=== PATIENT | male | born 1935 | race Caucasian/White ===

== ENCOUNTER 2017-05-03 11:29 | Emergency (ER) | payer MEDICARE, OTHER ==
[2017-05-03] MEDS ORDERED: Sodium Chloride 0.9% 10 ML Syringe FLUSH PRN (12:03)
[2017-05-03] MEDS ORDERED: Metoprolol Tartrate 5 MG/5 ML SDV IVPUSH ONE (12:06)
[2017-05-03] MEDS ORDERED: Sodium Chloride 0.9% 1,000 ML IV SCH ×2 (12:15→13:15)
--- NOTE | 2017-05-03 13:06 | EDM.PDOC ---
ED HPI GENERAL MEDICAL PROBLEM - General Chief Complaint: Abdominal Pain Stated Complaint: ABDOMINAL PAIN OFF AND ON X 5 DAYS+ Time Seen by Provider: 05/03/17 11:41 Source of Information: Reports: Patient, RN Notes Reviewed History Limitations: Reports: No Limitations - History of Present Illness INITIAL COMMENTS - FREE TEXT/NARRATIVE: 82-year-old male comes into the ER complaining of abdominal pain which started last . Patient went to the [facility] last Saturday where per patient they did "some sort of scan" and decided to start him on Cipro 10 days for possible infection. He was also told to stay hydrated as his symptoms may be from dehydration. Since the clinic visit he has had no relief in symptoms with the pain localizing to the right lower area. Patient admits to having nausea, chills and states that it hurts to walk and has to hunch over at times yesterday and today. Patient denies any fever, diarrhea, constipation, decreased appetite, blood in the stool or urine. Last bowel movement was last night and was normal per patient. Patient states has been taking Tylenol and Tramadol for pain when necessary, with the last time taking Tramadol at 4:30 AM this morning with no relief. Patient's states that he has had similar episodes in the past up to 5 times that this is the first time it has not gone away. Patient denies any past history of GI issues and still has both the appendix and gallbladder. He is not up-to-date with his colonoscopy, as he admits he has never had one. Pain worsening the last 2-3 days and becoming more persistent. Appetite has been diminished. Onset: Other (Last ) Duration: Constant Location: Reports: Abdomen (Right lower area) Quality: Reports: Sharp Severity: Moderate Improves with: Reports: None Worsens with: Reports: None (Constant) Associated Symptoms: Reports: Fever/Chills, Loss of Appetite (Last ate last night), Nausea/Vomiting (Nausea only). Denies: Chest Pain, Cough, Diaphoresis, Headaches Right Lower Abdominal Pain Score (Numeric/FACES): 6 - Related Data Allergies Allergy/AdvReac Type Severity Reaction Status Date / Time No Known Allergies Allergy Verified 05/03/17 11:36 Home Meds: Home Meds Albuterol [Proair HFA] 2 puff INH Q6H PRN 05/03/17 [History] Ciprofloxacin [IJD: Ciprofloxacin HCl] 500 mg PO BID 05/03/17 [History] Clopidogrel [Plavix] 75 mg PO DAILY 05/03/17 [History] Fluticasone/Vilanterol [Breo Ellipta 200-25 MCG Inhalation Kit] 1 puff INH DAILY 05/03/17 [History] Losartan [Cozaar] 50 mg PO DAILY 05/03/17 [History] Metoprolol Tartrate 25 mg PO DAILY 05/03/17 [History] Simvastatin 40 mg PO DAILY 05/03/17 [History] Tiotropium [place] [Spiriva Respimat] 2 puff INH DAILY 05/03/17 [History] traMADol [Ultram] 50 mg PO Q6H PRN 05/03/17 [History] traMADol [Ultram] 50 mg PO Q6H PRN #14 tab 05/03/17 [Rx] ED ROS GENERAL - Review of Systems Review Of Systems: See Below Constitutional: Reports: Chills, Decreased Appetite HEENT: Reports: No Symptoms Respiratory: Reports: No Symptoms, Shortness of Breath (Possible mild, chronic) Cardiovascular: Denies: Chest Pain, Palpitations Endocrine: Reports: No Symptoms GI/Abdominal: Reports: Abdominal Pain (Right lower quadrant), Decreased Appetite. Denies: Constipation, Diarrhea, Difficulty Swallowing, Hematemesis, Hematochezia : Reports: No Symptoms, Hematuria (Gone now) Musculoskeletal: Reports: No Symptoms Skin: Reports: No Symptoms. Denies: Diaphoresis Neurological: Reports: Difficulty Walking (States pain in right lower quadrant when walking), Gait Disturbance (Hunches over due to pain in right lower quadrant). Denies: Headache Psychiatric: Reports: No Symptoms Immunologic: Reports: No Symptoms ED EXAM, GI/ABD - Physical Exam Exam: See Below Exam Limited By: No Limitations General Appearance: Alert, WD/WN, Mild Distress (At time of exam, note, pain much worse this morning prior to coming in) Eyes: Bilateral: Normal Appearance Ears: Normal External Exam Nose: Normal Inspection Throat/Mouth: Normal Inspection, Other (Oral mucosa dry) Head: Atraumatic Neck: Normal Inspection Respiratory/Chest: No Respiratory Distress, Lungs Clear, Normal Breath Sounds Cardiovascular: Tachycardia, Irregularly Irregular, Other (Currently in atrial fibrillation) GI/Abdominal Exam: Normal Bowel Sounds, Guarding, Tender (Right lower quadrant) . No: Rigid, Rebound, Hernia, Mass, Hepatomegaly, Splenomegaly Back Exam: No: CVA Tenderness (L), CVA Tenderness (R) Extremities: Normal Inspection. No: Pedal Edema, Leg Pain Neurological: Alert, Oriented Psychiatric: Normal Affect, Normal Mood Skin Exam: Warm, Dry, Intact, Normal Color EKG INTERPRETATION EKG Date: 05/03/17 Rhythm: A-Fib [place]: Normal P-Wave: Absent QRS: Normal ST-T: Other (Very mild T-wave inversion inferior leads) Course - Vital Signs Text/Narrative:: Ultrasound of gallbladder does not show apparent gallbladder disease or explanation for right-sided abdominal pain. CT of abdomen had been done earlier did show some fluid around the gallbladder. Appendix was normal, her apparent acute pathology noted, see radiology report for details. White count very mildly elevated. She has been resting quite comfortably while here in the ED now for many hours. He does feel up to going home at this time. He has never had a colonoscopy. His states that he is now had "5 episodes of rather severe right sided abdominal discomfort in the past 6-8 months. I'm strongly suggesting that he get a colonoscopy as soon as possible. Discharge instructions as documented. Last Recorded V/S: Last Vital Signs Temp 98.5 F 05/03/17 11:36 Pulse 109 H 05/03/17 13:51 Resp 18 05/03/17 11:36 BP 150/98 H 05/03/17 13:51 Pulse Ox 96 05/03/17 11:36 - Orders/Labs/Meds Orders: Active Orders 24 hr Category Date Time Status EKG 12 Lead [EKG Documentation Completion] [RC] STAT Care 05/03/17 12:03 Active Peripheral IV Care [RC] . DIRECTED Care 05/03/17 12:03 Active Sodium Chloride 0.9% [Normal Saline] 1,000 ml Med 05/03/17 13:15 Active IV ASDIRECTED Sodium Chloride 0.9% [Normal Saline] 1,000 ml Med 05/03/17 12:15 Active IV ONETIME Sodium Chloride 0.9% [Saline Flush] Med 05/03/17 12:03 Active 10 ml FLUSH ASDIRECTED PRN Peripheral IV Insertion Adult [OM.PC] Stat Oth 05/03/17 12:03 Ordered Medication Orders Sodium Chloride (Normal Saline) 1,000 mls @ 999 mls/hr IV ONETIME ASHA Last Admin: 05/03/17 12:41 Dose: 999 mls/hr Sodium Chloride (Normal Saline) 1,000 mls @ 75 mls/hr IV ASDIRECTED ASHA Last Admin: 05/03/17 13:57 Dose: 75 mls/hr Sodium Chloride (Saline Flush) 10 ml FLUSH ASDIRECTED PRN PRN Reason: Keep Vein Open Last Admin: 05/03/17 12:42 Dose: 10 ml Labs: Laboratory Tests 05/03/17 05/03/17 05/03/17 Range/Units 12:05 12:05 12:05 WBC 14.09 H (4.23-9.07) K/mm3 RBC 4.40 L (4.63-6.08) M/mm3 Hgb 12.3 L (13.7-17.5) gm/L Hct 39.7 L (40.1-51.0) % MCV 90.2 (79.0-92.2) fl MCH 28.0 (25.7-32.2) pg MCHC 31.0 L (32.2-35.5) g/dl RDW Std Deviation 48.2 H (35.1-43.9) fL Plt Count 250 (163-337) K/mm3 MPV 9.8 (9.4-12.3) fl Neutrophils % (Manual) 76 H (40-60) % Band Neutrophils % 0 (0-10) % Lymphocytes % (Manual) 16 L (20-40) % Atypical Lymphs % 0 % Monocytes % (Manual) 7 (2-10) % Eosinophils % (Manual) 1 (0.8-7.0) % Basophils % (Manual) 0 L (0.2-1.2) Platelet Estimate Adequate RBC Morph Comment Normal Sodium 135 L (136-145) mEq/L Potassium 4.6 (3.5-5.1) mEq/L Chloride 102 (98-107) mEq/L Carbon Dioxide 22 (21-32) mEq/L Anion Gap 15.6 H (5-15) BUN 25 H (7-18) mg/dL Creatinine 1.9 H (0.7-1.3) mg/dL Est Cr Clr Drug Dosing 28.05 mL/min Estimated GFR (MDRD) 34 (>60) mL/min BUN/Creatinine Ratio 13.2 L (14-18) Glucose 137 H (83-115) mg/dL Calcium 9.4 (8.5-10.1) mg/dL Total Bilirubin 0.8 (0.2-1.0) mg/dL AST 22 (15-37) U/L ALT 38 (16-63) U/L Alkaline Phosphatase 132 H (46-116) U/L C-Reactive Protein 4.0 H* (<1.0) mg/dL Total Protein 7.2 (6.4-8.2) g/dl Albumin 3.1 L (3.4-5.0) g/dl Globulin 4.1 gm/dL Albumin/Globulin Ratio 0.8 L (1-2) Meds: Medications Generic Name Dose Route Start Last Admin Trade Name Freq PRN Reason Stop Dose Admin Sodium Chloride 1,000 mls @ 999 mls/hr 05/03/17 12:15 05/03/17 12:41 Normal Saline IV 999 mls/hr ONETIME ASHA Administration Sodium Chloride 1,000 mls @ 75 mls/hr 05/03/17 13:15 05/03/17 13:57 Normal Saline IV 75 mls/hr ASDIRECTED ASHA Administration Sodium Chloride 10 ml 05/03/17 12:03 05/03/17 12:42 Saline Flush FLUSH 10 ml ASDIRECTED PRN Administration Keep Vein Open Discontinued Medications Generic Name Dose Route Start Last Admin Trade Name Freq PRN Reason Stop Dose Admin Metoprolol Tartrate 5 mg 05/03/17 12:06 05/03/17 12:41 Lopressor IVPUSH 05/03/17 12:07 5 mg ONETIME ONE Administration Metoprolol Tartrate 50 mg 05/03/17 13:36 05/03/17 13:51 Lopressor PO 05/03/17 13:37 50 mg ONETIME ONE Administration Departure - Departure Time of Disposition: 17:30 Disposition: Home, Self-Care 01 Condition: Fair Clinical Impression: Abdominal pain Qualifiers: Abdominal location: right lower quadrant Qualified Code(s): R10.31 - Right lower quadrant pain - Discharge Information Prescriptions: traMADol [Ultram] 50 mg PO Q6H PRN #14 tab PRN Reason: Pain Referrals: Chavez Perla MD [Primary Care Provider] - Forms: ED Department Discharge Additional Instructions: Clear liquids and very bland diet as tolerated. I do suggest to start taking probiotic and take that twice daily to get more of the good bacteria in your intestine and colon. Tylenol 2-3 times daily if needed for mild to moderate discomfort. Tramadol if needed for pain not relieved by Tylenol. You may take one half tablet hydrocodone every 6-8 hours if needed for severe pain not relieved by Tylenol or tramadol. Call Dr. Celaya's nurse Saturday, discuss getting scheduled for colonoscopy. See Dr Celaya early next week, next available appt. Return to ED if symptoms worsening in any way. - My Orders Last 24 Hours: My Active Orders 05/03/17 12:03 EKG 12 Lead [EKG Documentation Completion] [RC] STAT Peripheral IV Care [RC] . DIRECTED Sodium Chloride 0.9% [Saline Flush] 10 ml FLUSH ASDIRECTED PRN Peripheral IV Insertion Adult [OM.PC] Stat 05/03/17 12:15 Sodium Chloride 0.9% [Normal Saline] 1,000 ml IV ONETIME 05/03/17 13:15 Sodium Chloride 0.9% [Normal Saline] 1,000 ml IV ASDIRECTED - Assessment/Plan Last 24 Hours: My Active Orders 05/03/17 12:03 EKG 12 Lead [EKG Documentation Completion] [RC] STAT Peripheral IV Care [RC] . DIRECTED Sodium Chloride 0.9% [Saline Flush] 10 ml FLUSH ASDIRECTED PRN Peripheral IV Insertion Adult [OM.PC] Stat 05/03/17 12:15 Sodium Chloride 0.9% [Normal Saline] 1,000 ml IV ONETIME 05/03/17 13:15 Sodium Chloride 0.9% [Normal Saline] 1,000 ml IV ASDIRECTED
[2017-05-03] MEDS ORDERED: Metoprolol Tartrate 50 MG Tab PO ONE (13:36)
[2017-05-03 13:52] VITALS: BP 150/98
--- NOTE | 2017-05-03 14:51 | CT ---
CT abdomen and pelvis Technique: Multiple axial sections were obtained from above the dome of the diaphragm inferiorly through the pubic symphysis. Oral contrast was given. Intravenous contrast not utilized which limits some details of the exam.. Comparison: No prior abdominal imaging. Findings: Inflammatory change is seen inferior to the liver next to the gallbladder as well as next to the hepatic flexure of the colon. Uncertain as to etiology of this inflammatory change which could be due to adjacent colitis or due to gallbladder disease. Appendix is seen which is normal. Calcifications are noted within the pancreas. Small portion of the visualized lung bases shows diffuse emphysematous change. Small hiatal hernia is noted with minimal gastroesophageal reflux. Adrenal glands show no nodule. Liver shows no focal parenchymal abnormality. Heart is slightly enlarged. Small left-sided pleural effusion is seen with trace right sided pleural effusion. Spleen appears within normal limits. Aorta at the level of the kidneys is mildly aneurysmal with measurement of 3.7 cm. 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 Atherosclerotic change noted within the aortoiliac vessels. No retroperitoneal adenopathy is seen. No mesenteric abnormalities are seen. No pelvic mass or adenopathy is seen. Calcifications are seen posteriorly within the bladder which could represent small layering bladder calculi versus wall calcification. Small amount of ascites noted within the dependent pelvis. Bone window settings were reviewed which show disc space narrowing at L4-L5 and L5-S1 with vacuum disc phenomena. Impression: 1. Nonspecific inflammatory change inferior to the liver. Findings could represent change from gallbladder disease as well as adjacent colitis. 2. 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 3. Minimal pleural effusions. 4. Calcifications either within the bladder or representing bladder wall calcifications posteriorly. 5. Small amount of increased fluid within the dependent portion of the pelvis. 6. Other incidental findings as noted above. Diagnostic code #3
--- NOTE | 2017-05-03 17:17 | US ---
Limited abdominal ultrasound: Multiple real-time images of the upper right abdomen were obtained. Technologist's note: Suboptimal exam due to bowel gas Comparison: Prior abdominal and pelvic CT exam performed earlier on the same day (1:04 PM). Findings: Hyperechoic lesion is identified within the right lobe of the liver. This is not identified even in retrospect on the noncontrast study but most likely represents hemangioma measuring approximately 2.1 cm. No additional abnormality is identified within the liver. Gallbladder shows no calcified gallstones. Small polyps are seen within the gallbladder which are felt to be incidental. No gallbladder wall thickening is seen. No biliary duct dilatation is seen. Right kidney is not completely seen due to bowel gas. No hydronephrosis is seen. Pancreas is incompletely seen due to bowel gas. Small portion of the visualized pancreas is within normal limits. Impression: 1. Less than optimal study as noted above. 2. Probable hemangioma within the right lobe of the liver. 3. Small polyps which are felt to be incidental within the gallbladder. No shadowing gallstones are seen. No gallbladder wall thickening or biliary duct dilatation is seen. Gallbladder is unlikely to represent the etiology for the inflammatory change seen on the CT exam. Diagnostic code #3
== END 2017-05-03 18:22 | disposition home or self-care (01) ==
LOC: JD.ED 11:29
DX: R10.31 Right lower quadrant pain (principal); Z79.899 Other long term (current) drug therapy
CPT/HCPCS: 36415; 74176; 76705; 80053; 85025; 86140; 93005; 96361; 96374; 99285; A9270; J7040; J7050; 99284; J3490

== ENCOUNTER 2017-05-10 10:37 | Inpatient (IN) | payer MEDICARE, OTHER ==
[~2017-05-10 10:37] MED LIST: Lactated Ringers 1,000 ML IV SCH; Lidocaine 1%/Sod Bicarbonate in NS 8.4% 1 ML Syringe IDERM PRN; Sodium Chloride 0.9% 10 ML Syringe FLUSH PRN
--- NOTE | 2017-05-10 13:00 | PCM.PREANE ---
Preanesthetic Assessment - Anesthesia/Transfusion/Family Hx Anesthesia History: Prior Anesthesia Without Reaction Family History of Anesthesia Reaction: No Transfusion History: No Prior Transfusion(s) - Review of Systems General: No Symptoms Pulmonary: Cough, Sputum Cardiovascular: Dyspnea on Exertion Gastrointestinal: No Symptoms Neurological: No Symptoms Other: Reports: Easy Bleeding, Easy Bruising, Thyroid Problems (nodgules) - Physical Assessment NPO Status Date: 05/09/17 NPO Status Time: 00:00 Pulse: 80 O2 Sat by Pulse Oximetry: 98 Respiratory Rate: 18 Blood Pressure: 111/75 Temperature: 37.2 C Vital Signs: Last Vital Signs Temp 37.2 C 05/10/17 11:31 Pulse 80 05/10/17 11:31 Resp 18 05/10/17 11:31 BP 111/75 05/10/17 11:31 Pulse Ox 98 05/10/17 11:31 Height: 1.7 m Weight: 60.328 kg ASA Class: 3 Mental Status: Alert & Oriented x3 Dentition: Reports: Dentures Thyro-Mental Finger Breadths: 3 Mouth Opening Finger Breadths: 3 ROM/Head Extension: Full Lungs: Clear to Auscultation, Normal Respiratory Effort Cardiovascular: Regular Rate, Regular Rhythm - Allergies Allergies/Adverse Reactions: Allergies Allergy/AdvReac Type Severity Reaction Status Date / Time No Known Allergies Allergy Verified 05/10/17 11:39 - Blood Blood Available: No Product(s) Available: None - Anesthesia Plan Pre-Op Medication Ordered: Beta Margie Beta Margie: Metoprolol Med Last Dose Date: 05/10/17 Med Last Dose Time: 08:00 - Acknowledgements Anesthesia Type Planned: MAC Pt an Appropriate Candidate for the Planned Anesthesia: Yes Alternatives and Risks of Anesthesia Discussed w Pt/Guardian: Yes Pt/Guardian Understands and Agrees with Anesthesia Plan: Yes PreAnesthesia Questionnaire HEENT History: Reports: Hard of Hearing, Impaired Vision, Macular Degeneration, Other (See Below) Other HEENT History: glasses,dentures, hearing aids Cardiovascular History: Reports: Afib, High Cholesterol, Hypertension Respiratory History: Reports: COPD, SOB Other Gastrointestinal History: enterocolitis, AAA Genitourinary History: Reports: [employer] History: Reports: None Musculoskeletal History: Reports: None Neurological History: Reports: Other (See Below) Other Neuro History: L4L5 spinal stenosis Psychiatric History: Reports: None Endocrine/Metabolic History: Reports: None Hematologic History: Reports: None Immunologic History: Reports: None Oncologic (Cancer) History: Reports: None Dermatologic History: Reports: None - Past Surgical History Head Surgeries/Procedures: Reports: None HEENT Surgical History: Reports: Cataract Surgery, Naso-Sinus Surgery Cardiovascular Surgical History: Reports: Carotid Endarterectomy Respiratory Surgical History: Reports: None GI Surgical History: Reports: None Female Surgical History: Reports: None Male Surgical History: Reports: None Endocrine Surgical History: Reports: None Neurological Surgical History: Reports: None Musculoskeletal Surgical History: Reports: Other (See Below) Other Musculoskeletal Surgeries/Procedures:: left leg surgery Oncologic Surgical History: Reports: None Dermatological Surgical History: Reports: None - SUBSTANCE USE Smoking Status *Q: Former Smoker Tobacco Use Within Last Twelve Months: No Second Hand Smoke Exposure: No Days Per Week of Alcohol Use: 7 Number of Drinks Per Day: 1 Total Drinks Per Week: 7 Date of Last Drink: 05/02/17 Recreational Drug Use History: No - HOME MEDS Home Medications: Home Meds Albuterol [Proair HFA] 2 puff INH Q6H PRN 05/03/17 [History] Clopidogrel [Plavix] 75 mg PO DAILY 05/03/17 [History] Fluticasone/Vilanterol [Breo Ellipta 200-25 MCG Inhalation Kit] 1 puff INH DAILY 05/03/17 [History] Losartan [Cozaar] 50 mg PO DAILY 05/03/17 [History] Metoprolol Tartrate 25 mg PO BID 05/03/17 [History] Simvastatin 40 mg PO DAILY 05/03/17 [History] Tiotropium [place] [Spiriva Respimat] 2 puff INH DAILY 05/03/17 [History] traMADol [Ultram] 50 mg PO Q6H PRN #14 tab 05/03/17 [Rx] Aspirin [Halfprin] 81 mg PO DAILY 05/09/17 [History] Lactobacillus Acidophilus [Probiotic] 1 cap PO DAILY 05/09/17 [History] - CURRENT (IN HOUSE) MEDS Current Meds: Current Medications Lactated Ringer's (Ringers, Lactated) 1,000 mls @ 125 mls/hr IV ASDIRECTED ASHA Stop: 05/10/17 23:00 Last Admin: 05/10/17 11:10 Dose: 125 mls/hr Lidocaine/Sodium Bicarbonate (Buffered Lidocaine 1% In Ns 8.4%) 0.25 ml IDERM ONETIME PRN PRN Reason: Prior to IV Start Stop: 05/10/17 18:00 Last Admin: 05/10/17 11:10 Dose: 0.25 ml Sodium Chloride (Saline Flush) 10 ml FLUSH ASDIRECTED PRN PRN Reason: Keep Vein Open Stop: 05/10/17 18:00
[2017-05-10] MEDS ORDERED: Propofol 200 MG/20 ML SDV ONE ×2 (13:47→14:37)
[2017-05-10] MEDS ORDERED: fentaNYL 100 MCG/2 ML SDV ONE (13:48)
[2017-05-10] MEDS ORDERED: Lidocaine 1% 4 ML ONE (13:50)
[2017-05-10] MEDS ORDERED: Phenylephrine/Normal Saline 100 MCG/ML 10 ML Syringe ONE (14:33)
--- NOTE | 2017-05-10 14:57 | PCM.OPNOTE ---
- General Post-Op/Procedure Note Date of Surgery/Procedure: 05/10/17 Operative Procedure(s): egd colonoscopy to cecum Pre Op Diagnosis: anemia and abdominal pain Post-Op Diagnosis: Same Anesthesia Technique: MAC Primary Surgeon: Afshin Meek EBL in mLs: 0 Complications: None Condition: Good
[2017-05-10] MEDS ORDERED: Esmolol 100 MG/10 ML SDV ONE (15:18)
[2017-05-10] MEDS ORDERED: Metoprolol Tartrate 5 MG/5 ML SDV ONE (15:51)
--- NOTE | 2017-05-10 16:49 | PCM.CONS ---
H&P History of Present Illness - General Date of Service: 05/10/17 Admit Problem/Dx: Atrial Fibrillation with RVR Source of Information: Patient, Family, Old Records, Provider, RN Notes Reviewed History Limitations: Reports: No Limitations - History of Present Illness Initial Comments - Free Text/Narative: This is an 82 yo elderly white male with past medical hx/o Atrial fibrillation on Plavix and ASA, HTN, HLD, COPD, BPH, and Chronic Pain who just went in for endoscopic procedure and developed sudden rapid heart rapid. He received initial rate control medications while in post operative recovery room but w/o much improvement. He is on metoprolol 25 mg po BID for maintenance medications. At the time of my examination, he looks clinically stable and in no acute distress. Hospital Medicine was consulted to help with medical management of his rapid heart rate. - Related Data Allergies/Adverse Reactions: Allergies Allergy/AdvReac Type Severity Reaction Status Date / Time No Known Allergies Allergy Verified 05/10/17 11:39 Home Medications: Home Meds Albuterol [Proair HFA] 2 puff INH Q6H PRN 05/03/17 [History] Clopidogrel [Plavix] 75 mg PO DAILY 05/03/17 [History] Fluticasone/Vilanterol [Breo Ellipta 200-25 MCG Inhalation Kit] 1 puff INH DAILY 05/03/17 [History] Losartan [Cozaar] 50 mg PO DAILY 05/03/17 [History] Metoprolol Tartrate 25 mg PO BID 05/03/17 [History] Simvastatin 40 mg PO DAILY 05/03/17 [History] Tiotropium [place] [Spiriva Respimat] 2 puff INH DAILY 05/03/17 [History] traMADol [Ultram] 50 mg PO Q6H PRN #14 tab 05/03/17 [Rx] Aspirin [Halfprin] 81 mg PO DAILY 05/09/17 [History] Lactobacillus Acidophilus [Probiotic] 1 cap PO DAILY 05/09/17 [History] Past Medical History HEENT History: Reports: Hard of Hearing, Impaired Vision, Macular Degeneration, Other (See Below) Other HEENT History: glasses,dentures, hearing aids Cardiovascular History: Reports: Afib, High Cholesterol, Hypertension Respiratory History: Reports: COPD, SOB Other Gastrointestinal History: enterocolitis, AAA Genitourinary History: Reports: BPH [employer] DEVELOPER History: Reports: None Musculoskeletal History: Reports: None Neurological History: Reports: Other (See Below) Other Neuro History: L4L5 spinal stenosis Psychiatric History: Reports: None Endocrine/Metabolic History: Reports: None Hematologic History: Reports: None Immunologic History: Reports: None Oncologic (Cancer) History: Reports: None Dermatologic History: Reports: None - Past Surgical History Head Surgeries/Procedures: Reports: None HEENT Surgical History: Reports: Cataract Surgery, Naso-Sinus Surgery Cardiovascular Surgical History: Reports: Carotid Endarterectomy Respiratory Surgical History: Reports: None GI Surgical History: Reports: None Female Surgical History: Reports: None Male Surgical History: Reports: None Endocrine Surgical History: Reports: None Neurological Surgical History: Reports: None Musculoskeletal Surgical History: Reports: Other (See Below) Other Musculoskeletal Surgeries/Procedures:: left leg surgery Oncologic Surgical History: Reports: None Dermatological Surgical History: Reports: None Social & Family History - Tobacco Use Smoking Status *Q: Former Smoker Month Tobacco Last Used: 2014 Second Hand Smoke Exposure: No - Caffeine Use Caffeine Use: Reports: Coffee, Soda - Alcohol Use Days Per Week of Alcohol Use: 7 Number of Drinks Per Day: 1 Total Drinks Per Week: 7 Date of Last Drink: 05/02/17 - Recreational Drug Use Recreational Drug Use: No H&P Review of Systems - Review of Systems: Review Of Systems: See Below General: Denies: Fever, Chills, Malaise, Weakness, Fatigue HEENT: Reports: No Symptoms Pulmonary: Denies: Shortness of Breath Cardiovascular: Reports: Palpitations. Denies: Chest Pain, Lightheadedness, Syncope Gastrointestinal: Reports: No Symptoms Genitourinary: Reports: No Symptoms Skin: Denies: Cyanosis, Mottled, Pallor, Diaphoresis, Erythema, Wound, Change in Hair/Nails Psychiatric: Denies: Confusion, Depression, Anxiety, Agitation, Hallucinations, Suicidal Ideation, Hallucinations (Auditory) Neurological: Denies: Confusion, Dizziness, Headache, Seizure, Syncope, Difficulty Walking, Weakness, Gait Disturbance Hematologic/Lymphatic: Reports: No Symptoms Immunologic: Reports: No Symptoms Exam - Exam Exam: See Below - Vital Signs Vital Signs: Last Vital Signs Temp 37.2 C 05/10/17 15:40 Pulse 125 H 05/10/17 15:23 Resp 21 H 05/10/17 16:10 BP 123/92 H 05/10/17 16:10 Pulse Ox 100 05/10/17 16:10 Weight: 60.328 kg - Exam General: Alert, Oriented, Cooperative, Mild Distress HEENT: Conjunctiva Clear, EACs Clear, EOMI, Hearing Intact, Mucosa Moist & [place] , Nares Patent, Posterior Pharynx Clear, Pupils Equal Neck: Supple, Trachea Midline Lungs: Clear to Auscultation, Normal Respiratory Effort Cardiovascular: Irregular Rhythm GI/Abdominal Exam: Normal Bowel Sounds, Soft, Non-Tender, No Organomegaly, No Distention, No Abnormal Bruit, No Mass (Male) Exam: Deferred Rectal (Males) Exam: Deferred Back Exam: Normal Inspection, Decreased Range of Motion Extremities: Normal Inspection, Normal Range of Motion, Non-Tender, No Pedal Edema, Normal Capillary Refill Peripheral Pulses: 2+: Posterior Tibial (L), Posterior Tibial (R), Dorsalis Pedis (L), Dorsalis Pedis (R) Skin: Warm, Dry, Intact Neuro Extensive - Mental Status: Oriented x3, Normal Cognition, Memory Intact Neuro Extensive - Motor, Sensory, Reflexes: CN II-XII Intact, Normal Gait Psychiatric: Alert, Normal Affect, Normal Mood Consult PN Assessment/Plan POD#: 0 Procedures: Procedures ASSAY OF TROPONIN QUANT (07/29/15) C-REACTIVE PROTEIN (05/03/17) COMPLETE CBC W/AUTO DIFF WBC (05/03/17) COMPREHEN METABOLIC PANEL (05/03/17) CT ABD & PELVIS W/O CONTRAST (05/03/17) CT ANGIOGRAPHY CHEST (07/29/15) CT THORAX W/O DYE (03/09/15) CYTOPATH CELL ENHANCE TECH (04/26/15) ECHO EXAM OF ABDOMEN (05/03/17) ELECTROCARDIOGRAM TRACING (05/03/17) EMERGENCY DEPT VISIT (05/03/17) FIBRIN DEGRADATION QUANT (07/29/15) HYDRATE IV INFUSION ADD-ON (05/03/17) POLYSOM 6/> YRS 4/> MAYELA (01/30/15) ROUTINE VENIPUNCTURE (05/03/17) THER/PROPH/DIAG INJ IV PUSH (05/03/17) THYROID IMAGING W/BLOOD FLOW (04/13/15) URINE CULTURE/COLONY COUNT (04/26/17) Problem List Initiated/Reviewed/Updated: Yes My Orders Last 24 Hours: My Active Orders 05/10/17 15:49 EKG 12 Lead [EK] Stat 05/10/17 15:50 EKG Documentation Completion [RC] ASDIRECTED Plan: Assessment: This is an 82 yo elderly white male with hx/o atrial fibrillation who recently underwent endoscopy and suddenly developed rapid ventricular rate with Hrs as high as 140s. Acute: Atrial Fibrillation with RVR - Carries a hx/o Atrial Fibrillation on Plavix only with Metoprolol 25 mg po BID - Post-operative endoscopy - Received x2 doses of Esmolol IVP but w/o any improvement - Still resistant with Lopressor 5 mg IVP x1 - EKG A-fib with HR of 121 - BPs on the low end of normal; will avoid CCB - Esmolol drip to keep HR < 100 - Thyroid panel Chronic: HTN HLD COPD BPH Pain Recommendations: Admit to ICU for BB drip Resume Home Meds Routine AM Labs Xarelto 20 mg po daily for anticoagulation Hold ASA and continue Plavix AHA diet DVT/GI PPx: H2B and Xarelto Code status: 1 On behalf of the hospitalist team, thank you for the opportunity to participate in the management of this patient. Requesting Provider: Dr. Meek Date Consult Requested: 05/10/17 Reason for Consult: Atrial Fibrillation Patient History Reviewed: Yes Admission H&P Reviewed: Yes Consult Result/Summary:: Yes Notified Requestor: Yes Time Spent (in minutes): 30
[2017-05-10] MEDS ORDERED: LORazepam 2 MG/ML MDV IV PRN (16:50)
[2017-05-10] MEDS ORDERED: hydrALAZINE 20 MG/ML SDV IVPUSH PRN (16:50)
[2017-05-10] MEDS ORDERED: Acetaminophen 325 MG Tab PO PRN (16:50)
[2017-05-10] MEDS ORDERED: Ondansetron 4 MG/2 ML SDV IV PRN (16:50)
[2017-05-10] MEDS ORDERED: Albuterol/Ipratropium 3.0-0.5 MG/3 ML Neb Soln NEB PRN (16:50)
[2017-05-10] MEDS ORDERED: Bisacodyl 5 MG Tab PO PRN (16:50)
[2017-05-10] MEDS ORDERED: Magnesium Hydroxide 400 MG/5 ML Susp 30 ML Cup PO PRN (16:50)
[2017-05-10] MEDS ORDERED: Temazepam 7.5 MG Cap PO PRN (16:50)
[2017-05-10] MEDS ORDERED: Docusate Sodium 100 MG Cap PO PRN (16:50)
[2017-05-10] MEDS ORDERED: HYDROmorphone 0.5 MG/0.5 ML SYRINGE IVPUSH PRN (16:50)
[2017-05-10] MEDS ORDERED: Acetaminophen/HYDROcodone 325-5 MG Tab PO PRN (16:50)
[2017-05-10] MEDS ORDERED: Polyethylene Glycol 3350 Powder 17 GM Packet PO PRN (16:50)
[2017-05-10] MEDS ORDERED: Promethazine 12.5 MG in Sodium Chloride 0.9% 50 ML IV PRN (16:50)
[2017-05-10] MEDS ORDERED: LORazepam 2 MG/ML MDV IVPUSH PRN (16:50)
[2017-05-10] MEDS ORDERED: traMADol 50 MG Tab PO PRN (16:55)
[2017-05-10] MEDS ORDERED: Esmolol/Normal Saline 2.5 GM/250 ML BAG IV SCH (17:00)
[2017-05-10] MEDS ORDERED: Amiodarone In Dextrose,Iso-Osm 150 MG in Premix Bag 1 BAG IV ONE ×2 (20:31)
[2017-05-10] MEDS: Rivaroxaban 10 MG Tab PO SCH (20:57)
[2017-05-10] MEDS ORDERED: Metoprolol Tartrate 25 MG Tab PO SCH (21:00)
[2017-05-10] MEDS ORDERED: Diltiazem 25 MG/5 ML SDV IVPUSH ONE (22:00)
[2017-05-10] MEDS: Albuterol 6.7 GM Inhaler INH PRN (22:06)
[2017-05-11] MEDS: Metoprolol Tartrate 5 MG/5 ML SDV IVPUSH PRN ×4 (00:21→17:22)
--- NOTE | 2017-05-11 07:43 | PCM.CONSN ---
- General Info Date of Service: 05/11/17 Admission Dx/Problem (Free Text): Atrial Fibrillation with RVR Subjective Update: Follow Up Functional Status: Reports: Pain Controlled, Tolerating Diet, Ambulating, Urinating - Review of Systems General: Denies: Fever, Weakness, Fatigue, Malaise, Chills HEENT: Reports: No Symptoms Pulmonary: Denies: Shortness of Breath Cardiovascular: Denies: Chest Pain, Palpitations, Dyspnea on Exertion, Edema, Lightheadedness Gastrointestinal: Reports: Flatus. Denies: Abdominal Pain, Constipation, Decreased Appetite, Diarrhea, Difficulty Swallowing, Nausea, Vomiting Genitourinary: Reports: No Symptoms Musculoskeletal: Reports: No Symptoms Skin: Denies: Cyanosis, Mottled, Pallor, Diaphoresis Neurological: Denies: Confusion, Dizziness, Headache, Syncope, Difficulty Walking, Weakness, Gait Disturbance Psychiatric: Denies: Depression, Anxiety, Agitation, Hallucinations Systems Review Comment:: No overnight or acute issues. He slept pretty good. He feels good this morning. He has no new complaints. Mg is 1.7 this morning. - Patient Data Vitals - Most Recent: Last Vital Signs Temp 37.3 C 05/11/17 07:00 Pulse 125 H 05/11/17 04:25 Resp 23 H 05/11/17 07:00 BP 140/97 H 05/11/17 07:00 Pulse Ox 96 05/10/17 22:08 Weight - Most Recent: 63.412 kg I&O - Last 24 Hours: Intake & Output 05/10/17 05/11/17 05/11/17 22:59 06:59 14:59 Intake Total 600 741 Output Total 200 Balance 600 541 Lab Results Last 24 Hours: Laboratory Results - last 24 hr 05/10/17 05/11/17 05/11/17 Range/Units 17:59 05:35 05:35 WBC 7.60 (4.23-9.07) K/mm3 RBC 4.05 L (4.63-6.08) M/mm3 Hgb 11.5 L (13.7-17.5) gm/L Hct 35.9 L (40.1-51.0) % MCV 88.6 (79.0-92.2) fl MCH 28.4 (25.7-32.2) pg MCHC 32.0 L (32.2-35.5) g/dl RDW Std Deviation 48.2 H (35.1-43.9) fL Plt Count 296 (163-337) K/mm3 MPV 9.2 L (9.4-12.3) fl Neut % (Auto) 73.2 H (34.0-67.9) % Lymph % (Auto) 11.4 L (21.8-53.1) % Hawkins % (Auto) 11.8 (5.3-12.2) % Eos % (Auto) 3.0 (0.8-7.0) Baso % (Auto) 0.5 (0.1-1.2) % Neut # (Auto) 5.55 H (1.78-5.38) K/mm3 Lymph # (Auto) 0.87 L (1.32-3.57) K/mm3 Hawkins # (Auto) 0.90 H (0.30-0.82) K/mm3 Eos # (Auto) 0.23 (0.04-0.54) K/mm3 Baso # (Auto) 0.04 (0.01-0.08) K/mm3 Sodium 140 (136-145) mEq/L Potassium 3.8 (3.5-5.1) mEq/L Chloride 102 (98-107) mEq/L Carbon Dioxide 28 (21-32) mEq/L Anion Gap 13.8 (5-15) BUN 24 H (7-18) mg/dL Creatinine 1.1 (0.7-1.3) mg/dL Est Cr Clr Drug Dosing 48.04 mL/min Estimated GFR (MDRD) > 60 (>60) mL/min BUN/Creatinine Ratio 21.8 H (14-18) Glucose 96 (83-115) mg/dL Calcium 8.6 (8.5-10.1) mg/dL Magnesium 1.7 L (1.8-2.4) mg/dl Free T4 1.51 H (0.76-1.46) ng/dL TSH 3rd Generation 1.437 (0.358-3.74) uIU/mL Med Orders - Current: Current Medications Acetaminophen (Tylenol) 650 mg PO Q4H PRN PRN Reason: Pain (Mild 1-3)/fever Hydrocodone Bitart/Acetaminophen ([place] 325-5 Mg) 1 tab PO Q4H PRN PRN Reason: Pain (moderate 4-6) Albuterol (Proventil Hfa) 0 gm INH Q6H PRN PRN Reason: Wheezing Last Admin: 05/10/17 22:06 Dose: 2 puff Albuterol/Ipratropium (Duoneb 3.0-0.5 Mg/3 Ml) 3 ml NEB Q4H PRN PRN Reason: Shortness Of Breath/wheezing Bisacodyl (Dulcolax) 5 mg PO DAILY PRN PRN Reason: Constipation Clopidogrel Bisulfate (Plavix) 75 mg PO DAILY ASHA Docusate Sodium (Colace) 100 mg PO BID PRN PRN Reason: Constipation Hydralazine HCl (Apresoline) 20 mg IVPUSH Q4H PRN PRN Reason: Hypertension Hydromorphone HCl (Dilaudid) 0.25 mg IVPUSH Q2H PRN PRN Reason: Pain (severe 7-10) Promethazine HCl 12.5 mg/ (Sodium Chloride) 50.5 mls @ 100 mls/hr IV Q6H PRN PRN Reason: Nausea/Vomiting Esmolol HCl (Brevibloc In Ns Premix) 2.5 gm in 250 mls @ 18.098 mls/hr IV TITRATE ASHA; 50 MCG/KG/MIN PRN Reason: Protocol Last Titration: 05/10/17 19:10 Dose: 100 mcg/kg/min, 36.197 mls/hr Amiodarone HCl/Dextrose (Nexterone In Dextrose 360 Mg/200 Ml) 360 mg in 200 mls @ 33.333 mls/hr IV ASDIRECTED ASHA PRN Reason: Protocol Last Infusion: 05/11/17 03:36 Dose: 16.6 mls/hr Lorazepam (Ativan) 2 mg IVPUSH Q4H PRN PRN Reason: Seizures Lorazepam (Ativan) 0.5 mg IV Q6H PRN PRN Reason: Anxiety Losartan Potassium (Cozaar) 50 mg PO DAILY ASHA Magnesium Hydroxide (Milk Of Magnesia) 30 ml PO Q12H PRN PRN Reason: Constipation Magnesium Sulfate (Pharmacy To Dose - Magnesium Replacement) 1 dose .XX ASDIRECTED ASHA Metoprolol Tartrate (Lopressor) 5 mg IVPUSH Q4H PRN PRN Reason: Tachycardia Last Admin: 05/11/17 04:25 Dose: 5 mg Metoprolol Tartrate (Lopressor) 50 mg PO BID [facility] Tiotropium [place] [ Spiriva Respimat] 2. 5 Mcg/Actuation Own Med 0 puff INH DAILY [facility] Ondansetron HCl (Zofran) 4 mg IV Q6H PRN PRN Reason: Nausea/Vomiting Fluticasone/Vilanterol (Breo Ellipta) 200/25 Mcg Own Med 0 each INH DAILY [facility] Polyethylene Glycol (Miralax) 17 gm PO DAILY PRN PRN Reason: Constipation Rivaroxaban (Xarelto) 20 mg PO DAILY [facility] Last Admin: 05/10/17 20:57 Dose: 20 mg Saccharomyces Boulardii (Florastor) 250 mg PO DAILY [facility] Senna/Docusate Sodium (Senna Plus) 1 tab PO BID PRN PRN Reason: Constipation Simvastatin (Zocor) 40 mg PO DAILY [facility] Temazepam (Restoril) 7.5 mg PO BEDTIME PRN PRN Reason: Sleep Tramadol HCl (Ultram) 50 mg PO Q6H PRN PRN Reason: Pain Discontinued Medications Diltiazem HCl (Diltiazem) 10 mg IVPUSH ONETIME ONE Stop: 05/10/17 22:01 Last Admin: 05/10/17 22:29 Dose: 10 mg Esmolol HCl (Esmolol) Confirm Administered Dose 100 mg .ROUTE .STK-MED ONE Stop: 05/10/17 15:19 Fentanyl (Sublimaze) Confirm Administered Dose 100 mcg .ROUTE .STK-MED ONE Stop: 05/10/17 13:49 Lactated Ringer's (Ringers, Lactated) 1,000 mls @ 125 mls/hr IV ASDIRECTED [facility] Stop: 05/10/17 23:00 Last Admin: 05/10/17 11:10 Dose: 125 mls/hr Lidocaine HCl (Xylocaine-Mpf 1%) Confirm Administered Dose 4 mls @ as directed .ROUTE .STK-MED ONE Stop: 05/10/17 13:51 Amiodarone HCl/Dextrose 150 mg (/ Premix) 100 mls @ 400 mls/hr IV NOW ONE PRN Reason: Protocol Stop: 05/10/17 20:45 Last Admin: 05/10/17 21:07 Dose: Not Given Lidocaine/Sodium Bicarbonate (Buffered Lidocaine 1% In Ns 8.4%) 0.25 ml IDERM ONETIME PRN PRN Reason: Prior to IV Start Stop: 05/10/17 18:00 Last Admin: 05/10/17 11:10 Dose: 0.25 ml Metoprolol Tartrate (Lopressor) Confirm Administered Dose 5 mg .ROUTE .STK-MED ONE Stop: 05/10/17 15:52 Metoprolol Tartrate (Lopressor) 25 mg PO BID ASHA Last Admin: 05/11/17 00:52 Dose: Not Given Phenylephrine HCl (Phenylephrine In Ns 100 Mcg/Ml) Confirm Administered Dose 1 mg .ROUTE .STK-MED ONE Stop: 05/10/17 14:34 Propofol (Diprivan 20 Ml) Confirm Administered Dose 200 mg .ROUTE .STK-MED ONE Stop: 05/10/17 13:48 Propofol (Diprivan 20 Ml) Confirm Administered Dose 200 mg .ROUTE .STK-MED ONE Stop: 05/10/17 14:38 Sodium Chloride (Saline Flush) 10 ml FLUSH ASDIRECTED PRN PRN Reason: Keep Vein Open Stop: 05/10/17 18:00 - Exam General: Alert, Oriented, Cooperative, No Acute Distress HEENT: Pupils Equal, Pupils Reactive, EOMI, Mucous Membr. Moist/[place] Neck: Supple, Trachea Midline, No JVD Lungs: Clear to Auscultation, Normal Respiratory Effort Cardiovascular: Irregular Rhythm, Other (Irregular Rate) GI/Abdominal Exam: Normal Bowel Sounds, Soft, Non-Tender, No Organomegaly, No Distention, No Abnormal Bruit (Male) Exam: Deferred Back Exam: Normal Inspection, Decreased Range of Motion Extremities: Normal Inspection, Normal Range of Motion, Non-Tender, No Pedal Edema, Normal Capillary Refill Skin: Warm, Dry, Intact Neurological: No New Focal Deficit Psy/Mental Status: Alert, Normal Affect, Normal Mood Consult PN Assessment/Plan Procedures: Procedures ASSAY OF TROPONIN QUANT (07/29/15) C-REACTIVE PROTEIN (05/03/17) COMPLETE CBC W/AUTO DIFF WBC (05/03/17) COMPREHEN METABOLIC PANEL (05/03/17) CT ABD & PELVIS W/O CONTRAST (05/03/17) CT ANGIOGRAPHY CHEST (07/29/15) CT THORAX W/O DYE (03/09/15) CYTOPATH CELL ENHANCE TECH (04/26/15) ECHO EXAM OF ABDOMEN (05/03/17) ELECTROCARDIOGRAM TRACING (05/03/17) EMERGENCY DEPT VISIT (05/03/17) FIBRIN DEGRADATION QUANT (07/29/15) HYDRATE IV INFUSION ADD-ON (05/03/17) POLYSOM 6/> YRS 4/> MAYELA (01/30/15) ROUTINE VENIPUNCTURE (05/03/17) THER/PROPH/DIAG INJ IV PUSH (05/03/17) THYROID IMAGING W/BLOOD FLOW (04/13/15) URINE CULTURE/COLONY COUNT (04/26/17) Problem List Initiated/Reviewed/Updated: Yes My Orders Last 24 Hours: My Active Orders 05/10/17 15:49 EKG 12 Lead [EK] Stat 05/10/17 16:50 Height and Weight [RC] 04 Oxygen Therapy [RC] PRN Up With Assistance [RC] ASDIRECTED Up ad [place] [RC] ASDIRECTED VTE/DVT Education [RC] BID Vital Signs [RC] Q1HR Consult to Spiritual Care [CONS] Routine OT Evaluation and Treatment [CONS] Routine PT Evaluation and Treatment [CONS] Routine Acetaminophen [Tylenol] 650 mg PO Q4H PRN Acetaminophen/HYDROcodone [Frankewing 325-5 MG] 1 tab PO Q4H PRN Albuterol/Ipratropium [DuoNeb 3.0-0.5 MG/3 ML] 3 ml NEB Q4H PRN Bisacodyl [Dulcolax] 5 mg PO DAILY PRN Docusate Sodium [Colace] 100 mg PO BID PRN Docusate Sodium/Sennosides [Senna Plus] 1 tab PO BID PRN HYDROmorphone [Dilaudid] 0.25 mg IVPUSH Q2H PRN LORazepam [Ativan] 0.5 mg IV Q6H PRN LORazepam [Ativan] 2 mg IVPUSH Q4H PRN Magnesium Hydroxide [Milk of Magnesia] 30 ml PO Q12H PRN Metoprolol Tartrate [Lopressor] 5 mg IVPUSH Q4H PRN Ondansetron [Zofran] 4 mg IV Q6H PRN Polyethylene Glycol 3350 [MiraLAX] 17 gm PO DAILY PRN Promethazine [Phenergan] 12.5 mg Sodium Chloride 0.9% [Normal Saline] 50 ml IV Q6H Temazepam [Restoril] 7.5 mg PO BEDTIME PRN hydrALAZINE [Apresoline] 20 mg IVPUSH Q4H PRN Resuscitation Status Routine 05/10/17 16:51 Cardiac Monitoring [RC] CONTINUOUS Intake and Output [RC] 04,16 05/10/17 16:53 RT Aerosol Therapy [RC] ASDIRECTED 05/10/17 16:55 Albuterol [Proventil HFA] 0 gm INH Q6H PRN traMADol [Ultram] 50 mg PO Q6H PRN 05/10/17 17:00 Esmolol/Normal Saline [Brevibloc in NS Premix] 2.5 gm in 250 ml IV TITRATE Magnesium Rep Pharmacy to Dose [Pharmacy to Dose - Magnesium Replacement] 1 dose .XX ASDIRECTED 05/10/17 18:55 EKG 12 Lead [EK] Stat 05/10/17 19:45 Rivaroxaban [Xarelto] 20 mg PO DAILY 05/10/17 20:45 Amiodarone In Dextrose,Iso-Osm [Nexterone in Dextrose 360 MG/200 ML] 360 mg in 200 ml IV ASDIRECTED 05/10/17 Dinner Heart Healthy Diet [DIET] 05/11/17 09:00 Clopidogrel [Plavix] 75 mg PO DAILY Losartan [Cozaar] 50 mg PO DAILY Metoprolol Tartrate [Lopressor] 50 mg PO BID Patient's Own Medication [Ptom] 0 each INH DAILY Saccharomyces Boulardii [Florastor] 250 mg PO DAILY Simvastatin [Zocor] 40 mg PO DAILY Tiotropium [place] [Spiriva Respimat] 0 puff INH DAILY 05/13/17 07:00 Echo Comp wo Cont [US] Routine Plan: Assessment: This is an 82 yo elderly white male with hx/o atrial fibrillation who recently underwent endoscopy and suddenly developed rapid ventricular rate with Hrs as high as 140s. Acute: Atrial Fibrillation with RVR, Slightly Improved HR low 90s- 120s - Carries a hx/o Atrial Fibrillation on Plavix only with Metoprolol 25 mg po BID; increased to 50 mg po BID - Post-operative endoscopy - Received x2 doses of Esmolol IVP but w/o any improvement; resistant with Lopressor 5 mg IVP x1 - EKG A-fib with HR of 121 - BPs on the low end of normal; will avoid CCB - D/c'd Esmolol drip to keep HR < 100 - Thyroid panel- slightly elevated FT4 level - He is currently on Amiodarone drip with PRN Lopressor - Will have PRN IV Lopressor scheduled Q4H and increased Metoprolol to 75 mg po BID - Consider coming off Amiodarone drip tonight Hypomagnesemia - Mg 1.4 - Replete and monitor Chronic: HTN HLD COPD BPH Pain Recommendations: He is otherwise clinically stable; continue current treatment Resume Home Meds Routine AM Labs Xarelto 20 mg po daily for anticoagulation ASA and discontinue Plavix AHA diet DVT/GI PPx: H2B and Xarelto Code status: 1
[2017-05-11] MEDS: Rivaroxaban 10 MG Tab PO SCH (08:07)
[2017-05-11] MEDS: Saccharomyces Boulardii (Probiotic) 250 MG Cap PO SCH (08:11)
[2017-05-11] MEDS: Losartan 25 MG Tab PO SCH (08:11)
[2017-05-11] MEDS: Aspirin 81 MG Tab.EC PO SCH (08:11)
[2017-05-11] MEDS: Simvastatin 40 MG Tab PO SCH (08:11)
[2017-05-11] MEDS ORDERED: Metoprolol Tartrate 25 MG Tab PO SCH ×3 (09:00→21:00)
[2017-05-11] MEDS ORDERED: Clopidogrel 75 MG Tab PO SCH (09:00)
[2017-05-11] MEDS ORDERED: Magnesium Oxide 400 MG Tab PO ONE ×2 (09:00→11:30)
[2017-05-11] MEDS: TIOTROPIUM BROMIDE INH SCH (09:34)
[2017-05-11] MEDS: FLUTICASONE INH SCH (09:34)
[2017-05-11] MEDS: VILANTEROL INH SCH (09:34)
--- NOTE | 2017-05-11 12:23 | PCM.SN ---
- Free Text/Narrative Note: Patient seen and examined at bedside. His HR is now fluctuating in the 90s-low teens. Will continue combiantion amiodarone and BB to control her heart rate.
[2017-05-11] MEDS ORDERED: Simethicone 80 MG Tab.Chew PO PRN (15:39)
[2017-05-11] MEDS ORDERED: Pantoprazole 40 MG Tab.CR PO SCH (16:00)
[2017-05-11] MEDS ORDERED: Metoprolol Tartrate 5 MG/5 ML SDV IVPUSH SCH (18:30)
[2017-05-11] MEDS: Metoprolol Tartrate 25 MG Tab PO SCH (20:59)
[2017-05-11] MEDS: Amiodarone 200 MG Tab PO SCH (21:01)
[2017-05-11] MEDS: Multivitamins with Minerals/Folic Acid/Lutein/Zeaxanth Tab PO SCH (21:01)
[2017-05-11] MEDS: Albuterol 6.7 GM Inhaler INH PRN (22:11)
[2017-05-12] MEDS: Metoprolol Tartrate 5 MG/5 ML SDV IVPUSH PRN ×2 (01:29→05:54)
[2017-05-12] MEDS: VILANTEROL INH SCH (08:26)
[2017-05-12] MEDS: FLUTICASONE INH SCH (08:26)
[2017-05-12] MEDS: TIOTROPIUM BROMIDE INH SCH (08:27)
[2017-05-12] MEDS: Metoprolol Tartrate 25 MG Tab PO SCH (08:36)
[2017-05-12] MEDS: Rivaroxaban 10 MG Tab PO SCH (08:38)
[2017-05-12] MEDS: Amiodarone 200 MG Tab PO SCH (08:39)
[2017-05-12] MEDS: Multivitamins with Minerals/Folic Acid/Lutein/Zeaxanth Tab PO SCH (08:39)
[2017-05-12] MEDS: Saccharomyces Boulardii (Probiotic) 250 MG Cap PO SCH (08:39)
[2017-05-12] MEDS: Simvastatin 40 MG Tab PO SCH (08:39)
[2017-05-12] MEDS: Aspirin 81 MG Tab.EC PO SCH (08:39)
[2017-05-12] MEDS: Losartan 25 MG Tab PO SCH (08:44)
[2017-05-12] MEDS ORDERED: Multivitamins,Therapeutic Tab PO SCH (09:00)
--- NOTE | 2017-05-12 12:07 | PCM.DCSUM1 ---
Discharge Summary - Hospital Course Brief History: This is an 82 yo elderly white male with past medical hx/o Atrial fibrillation on Plavix and ASA, HTN, HLD, COPD, BPH, and Chronic Pain who just went in for endoscopic procedure and developed sudden rapid heart rapid. He received initial rate control medications while in post operative recovery room but w/o much improvement. He is on metoprolol 25 mg po BID for maintenance medications. At the time of my examination, he looks clinically stable and in no acute distress. Hospital Medicine was consulted to help with medical management of his rapid heart rate. - Discharge Data Discharge Date: 05/12/17 Discharge Disposition: Home, Self-Care 01 Condition: Good - Discharge Diagnosis/Problem(s) (1) Atrial fibrillation with rapid ventricular response SNOMED Code(s): [id number] ICD Code: I48.91 - UNSPECIFIED ATRIAL FIBRILLATION Status: Resolved - Patient Summary/Data Operative Procedure(s) Performed: egd colonoscopy to cecum Complications: None Consults: Consultations 05/10/17 16:50 Consult to Spiritual Care [CONS] Routine OT Evaluation and Treatment [CONS] Routine PT Evaluation and Treatment [CONS] Routine Labs Pending at D/C: None Recommended Follow-up Testing/Procedures: None Planned Operative Procedure(s) after DC: None Hospital Course: Patient was treatment for atrial fibrillation with rapid heart rate. He underwent endoscopic procedure but developed rapid heart rapid in the recovery room. He was treated initially with IV low dose esmolol x2 and a low dose of lopressor IVP x1 but w/o any improvement. His heart rate remained in the 120s and 130s so thereafter he was taken to the unit for medical treatment. Patient had a previous episode in the past during his endarterectomy in [facility]. It took about 3 days to get his heart controlled according to his . In the unit, he was put on esmolol drip but he slightly respond to it. A trial of cardizem was attempted but w/o good response at all. Thereafter, he was tried on combination amiodarone and metoprolol. Slowly, his heart rate improved on this regimen. His hospital course was uncomplicated. The rest of his chronic medical illness remained stable during this admission. Patient was clinically stable upon discharge. His heart rate was hovering in the low 80s to low 100s. He was discharged with a combination of amiodarone and metoprolol for rate control medications. He was also provided xarelto 20 mg by mouth daily for stroke prophylaxis. He was advised to take his blood pressure and heart rate 3 times a day and at least 4 times a week. He is to show his log on follow-up appointment with his PCP in 1 week. Patient was further advised to discontinue his Plavix and to only take his home dose Aspirin. And most importantly, he was advised to come back or seek immediate care should his fast heart rate persists or gets worse. The patient and his expressed understanding and in agreement with the plans as discussed above. All questions were answered. - Patient Instructions Diet: Usual Diet as Tolerated Activity: As Tolerated Driving: May Drive Today Showering/Bathing: May Shower Notify Provider of: Fever Other/Special Instructions: - Please take all new medications as directed. - Resume all home medications as usual except Plavix. - Check your blood pressure and heart rate at least 3x/day or 4x/week. Show log on your follow up appointment with your family doctor. - Call or follow up with your PCP in 1 week. - Discharge Plan Prescriptions/Med Rec: Amiodarone [Cordarone] 200 mg PO DAILY #30 tablet Metoprolol Tartrate 25 mg PO ASDIRECTED #160 tablet Rivaroxaban [Xarelto] 20 mg PO DAILY #30 tablet Home Medications: Home Meds Albuterol [Proair HFA] 2 puff INH Q6H PRN 05/03/17 [History] Fluticasone/Vilanterol [Breo Ellipta 200-25 MCG Inhalation Kit] 1 puff INH DAILY 05/03/17 [History] Losartan [Cozaar] 50 mg PO DAILY 05/03/17 [History] Simvastatin 40 mg PO DAILY 05/03/17 [History] Tiotropium [place] [Spiriva Respimat] 2 puff INH DAILY 05/03/17 [History] traMADol [Ultram] 50 mg PO Q6H PRN #14 tab 05/03/17 [Rx] Aspirin [Halfprin] 81 mg PO DAILY 05/09/17 [History] Lactobacillus Acidophilus [Probiotic] 1 cap PO DAILY 05/09/17 [History] Multivit with Calcium,Iron,Min [Essential Daily] 1 tab PO DAILY 05/10/17 [ History] Vit C/E/Zn/Coppr/Lutein/Zeaxan [Preservision Areds 2 Softgel] 1 cap PO BID 05/10 [History] Amiodarone [Cordarone] 200 mg PO DAILY #30 tablet 05/12/17 [Rx] Metoprolol Tartrate 25 mg PO ASDIRECTED #160 tablet 05/12/17 [Rx] Rivaroxaban [Xarelto] 20 mg PO DAILY #30 tablet 05/12/17 [Rx] Patient Handouts: Rivaroxaban oral tablets, Abdominal Pain, Adult, [id number] , Colonoscopy, Adult, Care After, Esophagogastroduodenoscopy, Care After Referrals: Chavez Jack MD [Primary Care Provider] - (follow up next week with Dr. Jack ) - Discharge Summary/Plan Comment DC Time >30 min.: Yes (45 mins) Discharge Summary/Plan Comment: Discharge to Home - General Info Date of Service: 05/12/17 Admission Dx/Problem (Free Text: Atrial Fibrillation with RVR Subjective Update: Follow Up Functional Status: Reports: Pain Controlled, Tolerating Diet, Ambulating, Urinating. Denies: New Symptoms - Review of Systems General: Denies: Fever, Weakness, Fatigue, Malaise HEENT: Reports: No Symptoms Pulmonary: Denies: Shortness of Breath, Pleuritic Chest Pain, Cough Cardiovascular: Denies: Chest Pain, Palpitations, Dyspnea on Exertion, Lightheadedness Gastrointestinal: Denies: Abdominal Pain, Nausea, Vomiting Genitourinary: Reports: No Symptoms Musculoskeletal: Reports: No Symptoms Skin: Denies: Cyanosis, Mottled, Pallor, Diaphoresis Neurological: Denies: Confusion, Difficulty Walking, Weakness, Gait Disturbance Psychiatric: Denies: Depression, Anxiety, Agitation, Hallucinations Systems Review Comment: No significant overnight or acute issues. He lsept pretty hgood - Patient Data Vitals - Most Recent: Last Vital Signs Temp 37.3 C 05/12/17 07:33 Pulse 134 H 05/12/17 08:36 Resp 22 H 05/12/17 07:33 BP 108/70 05/12/17 08:44 Pulse Ox 96 05/12/17 08:27 Weight - Most Recent: 64.047 kg I&O - Last 24 hours: Intake & Output 05/11/17 05/12/17 05/12/17 22:59 06:59 14:59 Intake Total 1150 300 240 Output Total 300 600 Balance 850 -300 240 Med Orders - Current: Current Medications Acetaminophen (Tylenol) 650 mg PO Q4H PRN PRN Reason: Pain (Mild 1-3)/fever Hydrocodone Bitart/Acetaminophen ([place] 325-5 Mg) 1 tab PO Q4H PRN PRN Reason: Pain (moderate 4-6) Albuterol (Proventil Hfa) 0 gm INH Q6H PRN PRN Reason: Wheezing Last Admin: 05/11/17 22:11 Dose: 2 puff Albuterol/Ipratropium (Duoneb 3.0-0.5 Mg/3 Ml) 3 ml NEB Q4H PRN PRN Reason: Shortness Of Breath/wheezing Amiodarone HCl (Cordarone) 200 mg PO DAILY ASHA Last Admin: 05/12/17 08:39 Dose: 200 mg Aspirin (Halfprin) 81 mg PO DAILY ASHA Last Admin: 05/12/17 08:39 Dose: 81 mg Bisacodyl (Dulcolax) 5 mg PO DAILY PRN PRN Reason: Constipation Docusate Sodium (Colace) 100 mg PO BID PRN PRN Reason: Constipation Hydralazine HCl (Apresoline) 20 mg IVPUSH Q4H PRN PRN Reason: Hypertension Hydromorphone HCl (Dilaudid) 0.25 mg IVPUSH Q2H PRN PRN Reason: Pain (severe 7-10) Promethazine HCl 12.5 mg/ (Sodium Chloride) 50.5 mls @ 100 mls/hr IV Q6H PRN PRN Reason: Nausea/Vomiting Esmolol HCl (Brevibloc In Ns Premix) 2.5 gm in 250 mls @ 18.098 mls/hr IV TITRATE ASHA; 50 MCG/KG/MIN PRN Reason: Protocol Last Titration: 05/10/17 19:10 Dose: 100 mcg/kg/min, 36.197 mls/hr Amiodarone HCl/Dextrose (Nexterone In Dextrose 360 Mg/200 Ml) 360 mg in 200 mls @ 33.333 mls/hr IV ASDIRECTED ASHA PRN Reason: Protocol Last Admin: 05/11/17 08:38 Dose: 16.6 mls/hr Lorazepam (Ativan) 2 mg IVPUSH Q4H PRN PRN Reason: Seizures Lorazepam (Ativan) 0.5 mg IV Q6H PRN PRN Reason: Anxiety Losartan Potassium (Cozaar) 50 mg PO DAILY [facility] Last Admin: 05/12/17 08:44 Dose: 50 mg Magnesium Hydroxide (Milk Of Magnesia) 30 ml PO Q12H PRN PRN Reason: Constipation Magnesium Sulfate (Pharmacy To Dose - Magnesium Replacement) 1 dose .XX ASDIRECTED [facility] Metoprolol Tartrate (Lopressor) 75 mg PO Q12HR [facility] Last Admin: 05/12/17 08:36 Dose: 75 mg Metoprolol Tartrate (Lopressor) 5 mg IVPUSH Q4H PRN PRN Reason: Tachycardia Last Admin: 05/12/17 05:54 Dose: 5 mg Multivitamins (Thera) 1 each PO DAILY [facility] Last Admin: 05/12/17 08:39 Dose: 1 each Tiotropium [place] [ Spiriva Respimat] 2. 5 Mcg/Actuation Own Med 0 puff INH DAILY [facility] Last Admin: 05/12/17 08:27 Dose: 1 puff Ondansetron HCl (Zofran) 4 mg IV Q6H PRN PRN Reason: Nausea/Vomiting Fluticasone/Vilanterol (Breo Ellipta) 200/25 Mcg Own Med 0 each INH DAILY [facility] Last Admin: 05/12/17 08:26 Dose: 1 each Polyethylene Glycol (Miralax) 17 gm PO DAILY PRN PRN Reason: Constipation Rivaroxaban (Xarelto) 20 mg PO DAILY [facility] Last Admin: 05/12/17 08:38 Dose: 20 mg Saccharomyces Boulardii (Florastor) 250 mg PO DAILY [facility] Last Admin: 05/12/17 08:39 Dose: 250 mg Senna/Docusate Sodium (Senna Plus) 1 tab PO BID PRN PRN Reason: Constipation Simvastatin (Zocor) 40 mg PO DAILY [facility] Last Admin: 05/12/17 08:39 Dose: 40 mg Temazepam (Restoril) 7.5 mg PO BEDTIME PRN PRN Reason: Sleep Tramadol HCl (Ultram) 50 mg PO Q6H PRN PRN Reason: Pain Vit A/Vit C/Vit E/Selen/Cu/Zn/Lutei (Icaps Mv) 1 tab PO BID [facility] Last Admin: 05/12/17 08:39 Dose: 1 tab Discontinued Medications Clopidogrel Bisulfate (Plavix) 75 mg PO DAILY [facility] Diltiazem HCl (Diltiazem) 10 mg IVPUSH ONETIME ONE Stop: 05/10/17 22:01 Last Admin: 05/10/17 22:29 Dose: 10 mg Esmolol HCl (Esmolol) Confirm Administered Dose 100 mg .ROUTE .STK-MED ONE Stop: 05/10/17 15:19 Fentanyl (Sublimaze) Confirm Administered Dose 100 mcg .ROUTE .STK-MED ONE Stop: 05/10/17 13:49 Lactated Ringer's (Ringers, Lactated) 1,000 mls @ 125 mls/hr IV ASDIRECTED [facility] Stop: 05/10/17 23:00 Last Admin: 05/10/17 11:10 Dose: 125 mls/hr Lidocaine HCl (Xylocaine-Mpf 1%) Confirm Administered Dose 4 mls @ as directed .ROUTE .STK-MED ONE Stop: 05/10/17 13:51 Amiodarone HCl/Dextrose 150 mg (/ Premix) 100 mls @ 400 mls/hr IV NOW ONE PRN Reason: Protocol Stop: 05/10/17 20:45 Last Admin: 05/10/17 21:07 Dose: Not Given Lidocaine/Sodium Bicarbonate (Buffered Lidocaine 1% In Ns 8.4%) 0.25 ml IDERM ONETIME PRN PRN Reason: Prior to IV Start Stop: 05/10/17 18:00 Last Admin: 05/10/17 11:10 Dose: 0.25 ml Magnesium Oxide (Magnesium Oxide) 800 mg PO ONETIME ONE Stop: 05/11/17 09:01 Last Admin: 05/11/17 11:50 Dose: 800 mg Magnesium Oxide (Magnesium Oxide) 800 mg PO ONETIME ONE Stop: 05/11/17 11:31 Last Admin: 05/11/17 11:51 Dose: Not Given Metoprolol Tartrate (Lopressor) Confirm Administered Dose 5 mg .ROUTE .STK-MED ONE Stop: 05/10/17 15:52 Metoprolol Tartrate (Lopressor) 5 mg IVPUSH Q4H PRN PRN Reason: Tachycardia Last Admin: 05/11/17 17:22 Dose: 5 mg Metoprolol Tartrate (Lopressor) 25 mg PO BID [facility] Last Admin: 05/11/17 00:52 Dose: Not Given Metoprolol Tartrate (Lopressor) 50 mg PO BID [facility] Last Admin: 05/11/17 08:10 Dose: 50 mg Metoprolol Tartrate (Lopressor) 25 mg PO Q6H ASHA Metoprolol Tartrate (Lopressor) 100 mg PO Q12HR [facility] Metoprolol Tartrate (Lopressor) 5 mg IVPUSH Q4H ASHA Phenylephrine HCl (Phenylephrine In Ns 100 Mcg/Ml) Confirm Administered Dose 1 mg .ROUTE .STK-MED ONE Stop: 05/10/17 14:34 Propofol (Diprivan 20 Ml) Confirm Administered Dose 200 mg .ROUTE .STK-MED ONE Stop: 05/10/17 13:48 Propofol (Diprivan 20 Ml) Confirm Administered Dose 200 mg .ROUTE .STK-MED ONE Stop: 05/10/17 14:38 Sodium Chloride (Saline Flush) 10 ml FLUSH ASDIRECTED PRN PRN Reason: Keep Vein Open Stop: 05/10/17 18:00 *Q Meaningful Use (DIS) - VTE *Q VTE Criteria *Q: - Stroke *Q Stroke Criteria *Q: - AMI *Q AMI Criteria *Q:
--- NOTE | 2017-05-12 16:59 | PCM48HPAN ---
Post Anesthesia Note - EVALUATION WITHIN 48HRS OF ANESTHETIC Vital Signs in Normal Range: Yes Patient Participated in Evaluation: Yes Respiratory Function Stable: Yes Airway Patent: Yes Cardiovascular Function Stable: Yes Hydration Status Stable: Yes Pain Control Satisfactory: Yes Nausea and Vomiting Control Satisfactory: Yes Mental Status Recovered: Yes Pulse Rate: 134 Resp Rate: 20 Temperature: 37.3 C Blood Pressure: 108/70 Pulse Rate: 23 - COMMENTS/OBSERVATIONS Free Text/Narrative:: Information obtained from chart. Patient discharged with follow at clinic in one week regarding atrial fibrillation.
[2017-05-12 17:00] VITALS: BP 108/70
--- NOTE | 2017-05-13 07:48 | OR ---
DATE OF OPERATION: 05/10/2017 SURGEON: Afshin Meek MD PREOPERATIVE DIAGNOSIS: Anemia, abdominal pain. POSTOPERATIVE DIAGNOSIS: Anemia, abdominal pain. OPERATION PERFORMED: Colonoscopy of the cecum. FINDINGS: Normal study. There were no angiodysplasias, neoplasias, large tumor masses, ulcerations, diverticulum, or notable hemorrhoids. ANESTHESIA: Procedure done under IV sedation. DESCRIPTION OF PROCEDURE: The patient having been taken to the endoscopy room and given IV sedation for upper GI endoscopy. After being connected to monitoring equipment, the IV sedation was continued for colonoscopy. He was placed in left lateral position. Perianal area was inspected, it was normal. Rectal exam showed good sphincter tone. A video Olympus colonoscope was then introduced into the rectum and threaded up without problem to the cecum, where the ileocecal valve was noted. Colonic prep was good. [place] cleansing score grade B and the scope was slowly withdrawn showing the cecum, ascending colon, transverse colon, descending colon, sigmoid colon, and rectum. Retroflexed view was done. The patient tolerated the procedure, was sent to recovery room in a stable condition and will be followed up in the clinic. ESTIMATED BLOOD LOSS: MMODAL /[id number]
--- NOTE | 2017-05-13 08:29 | OR ---
DATE OF OPERATION: 05/10/2017 SURGEON: Afshin Meek MD PREOPERATIVE DIAGNOSIS: Anemia. POSTOPERATIVE DIAGNOSIS: Anemia. PROCEDURE: Esophagogastroduodenoscopy done under IV sedation. FINDINGS: Edema and superficial erosions in the duodenal bulb and chronic antritis noted. 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 There were some linear erosions in the distal esophagus. Rest of the esophagus was unremarkable. The 2nd portion of the duodenum was free of any pathology as was the pylorus and body fundus and cardia of the stomach. DESCRIPTION OF PROCEDURE: The patient taken to the endoscopy room, placed in supine position, connected to monitoring equipment, given IV sedation, and placed in left lateral position. Bite-block was inserted. Video Olympus gastroscope placed in a posterior oropharynx. Under direct vision it was threaded past the cricopharyngeus down the esophagus and the stomach. The stomach was insufflated, and the scope passed through the pylorus to the 2nd portion of the duodenum. It was slowly withdrawn showing normal 2nd portion of the duodenum, but the duodenal bulb showed edema and superficial erosions. There was some erythema in the antrum and some evidence of chronic gastritis throughout the stomach. Body and cardia of the stomach did not show any acute disease. J-maneuver demonstrated incompetent hiatus. GE junction showed superficial erosions and was located at 40 cm. Rest of the esophagus was normal. The patient tolerated the procedure. Biopsies were avoided because the patient is on Plavix. The patient tolerated the procedure and IV sedation will be continued for colonoscopy. OPERATION PERFORMED: ANESTHESIA: ESTIMATED BLOOD LOSS: MMODAL /[id number]
== END 2017-05-12 12:30 | disposition home or self-care (01) | DRG 310 ==
LOC: JD.SDS 10:37 → JD.ICU 16:28
PROVIDERS: ADMIT Internal Medicine; ATTEND Surgery
PROC: 0DJ08ZZ Inspection of Upper Intestinal Tract, Via Natural or Artificial Opening Endoscopic (ICD-10-PCS; principal; 2017-05-10)
PROC: 0DJD8ZZ Inspection of Lower Intestinal Tract, Via Natural or Artificial Opening Endoscopic (ICD-10-PCS; 2017-05-10)
DX: D64.9 Anemia, unspecified (principal); R10.9 Unspecified abdominal pain; I48.91 Unspecified atrial fibrillation; K22.10 Ulcer of esophagus without bleeding; I95.9 Hypotension, unspecified; I10 Essential (primary) hypertension; E78.5 Hyperlipidemia, unspecified; J44.9 Chronic obstructive pulmonary disease, unspecified; N40.0 Benign prostatic hyperplasia without lower urinary tract symptoms; G89.29 Other chronic pain; H35.30 Unspecified macular degeneration; H91.93 Unspecified hearing loss, bilateral; K29.60 Other gastritis without bleeding; Z87.891 Personal history of nicotine dependence; Z79.02 Long term (current) use of antithrombotics/antiplatelets; Z79.82 Long term (current) use of aspirin; Z79.899 Other long term (current) drug therapy
CPT/HCPCS: 43235; 45378; 93005; J3010; J7120; 36415; 80048; 83735; 84439; 84443; 85025; 94640; 97162-GP; A9270-GY; J0282; J2704; J3490